=== PATIENT | female | born 1945 | race African-American/Black ===

== ENCOUNTER 2017-07-03 05:58 | Day surgery (SDC) | payer MEDICARE, MEDICAID ==
--- NOTE | 2017-07-02 13:36 | Pre-Procedure Note/Attestation ---
Pre-Procedure Note/Attestation Complete Prior to Procedure Planned Procedure: right Procedure Narrative: phaco with IOL, OD Indications for Procedure Pre-Operative Diagnosis: cataract Attestation I attest that I discussed the nature of the procedure; its benefits; risks and complications; and alternatives (and the risks and benefits of such alternatives ), prior to the procedure, with the patient (or the patient's legal medical representative). I attest that, if there was a reasonable possibility of needing a blood transfusion, the patient (or the patient's legal medical representative) was given the [facility] standardized written summary, pursuant to the Sly Susy Blood Safety Act ([place] Health and Safety Code # 1645, as amended). I attest that I re-evaluated the patient just prior to the surgery and that there has been no change in the patient's H&P, except as documented below: ROBBIE HEBERT Jul 02, 2017 13:36
--- NOTE | 2017-07-02 13:38 | Opthalmology H&P ---
Ophthalmology H&P H&P Chief Complaint: decreased vision in right eye HPI Vision Affects Ability to: read, focus/use eyes together, manage personal affairs HPI Narrative blurry vision Exam Visual Acuity: OD: cortical OS: ns Tension: OD: 19 OS: 15 Eye Exam: normal OU: external exam, palpebral fissure-width, marginal reflex distance, levator function, corneas, anterior chambers, findings: lens - OD: cortical OS: ns, fundus exam - drusen Assessment/Plan Diagnosis: (1) Cortical age-related cataract of right eye Treatment Plan: cataract extraction w/ lens implant Goals of Treatment: improvement of vision, enhance quality of life Attestation Attestation The risks and benefits of the surgery as well as alternative procedures were explained to the patient in detail. ROBBIE HEBERT Jul 02, 2017 13:38
[~2017-07-03] VITALS: Ht 152.4 cm; Wt 86.2 kg
[2017-07-03] VITALS (11 sets, daily range): BP systolic 128–150; BP diastolic 60–76
[2017-07-03] MEDS ORDERED: Tetracaine 0.5% Opth 4ml Soln RIGHT EYE ONE (07:00)
[2017-07-03] MEDS ORDERED: Proparacaine 0.5% Opth Soln 15ml RIGHT EYE ONE (07:00)
[2017-07-03] MEDS ORDERED: Akten 3.5% 1ml Btl RIGHT EYE ONE (07:00)
[2017-07-03] MEDS ORDERED: EPINEPHrine 1mg/1ml Amp ONE ×2 (07:04→09:00)
[2017-07-03] MEDS ORDERED: Bupivacaine 0.75% 30ml vial INJ ONE (07:04)
[2017-07-03] MEDS ORDERED: acetaZOLAMIDE 500mg Inj ONE (07:04)
[2017-07-03] MEDS ORDERED: Lidocaine 2% MPF 5ml Vial INJ ONE (07:05)
[2017-07-03] MEDS ORDERED: Carbachol 0.01% Op Soln 1.5ml vial ONE (07:05)
[2017-07-03] MEDS ORDERED: BSS 15ml BTL ONE ×2 (07:05→10:44)
[2017-07-03] MEDS ORDERED: Pilocarpine 2% Opth 15ml Soln ONE ×2 (07:05→09:34)
[2017-07-03] MEDS ORDERED: Sodium Hyaluronate 14 mg/ml 0.85ml ONE (07:06)
[2017-07-03] MEDS: Tobramycin Op Soln 0.3% 5ml RIGHT EYE SCH ×3 (07:50→08:11)
[2017-07-03] MEDS: Tropicamide 1% Opth 15ml Soln RIGHT EYE SCH ×3 (07:51→08:11)
[2017-07-03] MEDS: Cyclopentolate 1% Opth Sol 2ml RIGHT EYE SCH ×3 (07:51→08:11)
[2017-07-03] MEDS: Ketorolac Tromethamine Opth 5ml Soln RIGHT EYE SCH ×3 (07:51→08:11)
[2017-07-03] MEDS: Phenylephrine 10% Opth Soln 5ml RIGHT EYE SCH ×3 (07:51→08:12)
[2017-07-03] MEDS ORDERED: ASPIR 8181 MG ORAL (08:24)
[2017-07-03] MEDS ORDERED: MULTIVITAMINS1 EAC2 ORAL (08:25)
[2017-07-03] MEDS ORDERED: DIOVAN160 MG ORAL (08:25)
[2017-07-03] MEDS ORDERED: CYMBALTA60 MG ORAL (08:25)
[2017-07-03] MEDS ORDERED: ULTRAM50 MG ORAL (08:25)
[2017-07-03] MEDS ORDERED: VITAMIN D1000 UNI1 ORAL (08:25)
[2017-07-03] MEDS ORDERED: OMEPRAZOLE20 M2 ORAL (08:25)
[2017-07-03] MEDS ORDERED: LINZESS72 MCG PO (08:25)
[2017-07-03] MEDS ORDERED: DOC-Q-LACE100 M1 ORAL (08:25)
[2017-07-03] MEDS ORDERED: ZETIA10 MG ORAL (08:25)
[2017-07-03] MEDS ORDERED: LIPITOR20 MG ORAL (08:25)
[2017-07-03] MEDS ORDERED: FISH OIL CAP1000 MG ORAL (08:25)
[2017-07-03] MEDS ORDERED: LYRICA100 MG ORAL (08:25)
[2017-07-03] MEDS ORDERED: Midazolam 2mg/2ml Inj ONE (08:45)
[2017-07-03] MEDS ORDERED: Propofol 200mg/20ml IV ONE (08:45)
[2017-07-03] MEDS ORDERED: Sterile Water Irrig 1000ml IRRIG ONE (08:45)
[2017-07-03] MEDS ORDERED: NS Irrig 1000ml ONE (08:45)
[2017-07-03] MEDS ORDERED: LR 1000ml ONE (08:45)
[2017-07-03] MEDS ORDERED: Pred Forte 1% Opth Susp 1ml ONE (09:00)
[2017-07-03] MEDS ORDERED: BSS 500ml btl ONE (09:00)
[2017-07-03] MEDS ORDERED: Maxitrol Opth Oint 3.5gm ONE (09:00)
[2017-07-03] MEDS ORDERED: Dexamethasone 4mg/ml vial ONE (09:00)
[2017-07-03] MEDS ORDERED: Sterile Water 10ml Vial ONE (09:00)
[2017-07-03] MEDS ORDERED: LR 1000ml 1,000 ML IVLG SCH (09:07)
--- NOTE | 2017-07-03 09:07 | Anethesia Preoperative Eval ---
Anesthesia Pre-op PMH/ROS General Date of Evaluation: Jul 03, 2017 Time of Evaluation: 08:40 Anesthesiologist: Cassy ASA Score: ASA 3 Mallampati Score Class I : Soft palate, uvula, fauces, pillars visible Class II: Soft palate, uvula, fauces visible Class III: Soft palate, base of uvula visible Class IV: Only hard plate visible Mallampati Classification: Class III Surgeon: Cora Diagnosis: R eye cataract Surgical Procedure: R eye cataract extraction Anesthesia History: none Family History: no anesthesia problems Allergies: Coded Allergies: CODEINE (Verified Allergy, Intermediate, 07/03/17) hives SULFA (SULFONAMIDE ANTIBIOTICS) (Verified Allergy, Intermediate, 07/03/17) hives Medications: see eMAR Past Medical History Cardiovascular: Reports: HTN, Denies: CAD, OR, valve dz, arrhythmia, other Pulmonary: Reports: KIRILL, Denies: asthma, COPD, other Gastrointestinal/Genitourinary: Reports: GERD, Denies: CRI, ESRD, other Neurologic/Psychiatric: Reports: other - chronic pain, Denies: dementia, CVA, depression/anxiety, TIA Endocrine: Denies: DM, hypothyroidism, steroids, other HEENT: Reports: cataract (L), cataract (R), Denies: glaucoma, [place] (L), [place] (R), other Hematology/Immune: Denies: anemia, DVT, bleeding disorder, other Musculoskeletal/Integumentary: Reports: OA, DJD Other: obesity PMH Narrative: as above PSxH Narrative: Bilateral knees, bilateral shoulders Anesthesia Pre-op Phys. Exam Physician Exam Last Vital Signs Date Time Temp Pulse Resp B/P (MAP) Pulse Ox O2 Delivery O2 Flow Rate FiO2 07/03/17 08:15 98.3 57 16 143/74 98 Room Air 98.3 Constitutional: NAD Neurologic: CN 2-12 intact Cardiovascular: RRR, no M/R/G Respiratory: CTA Gastrointestinal: other - obesity Airway Exam Mallampati Score: Class III MO: limited Neck: short ROM: limited Teeth: missing Dentures: no upper, no lower Anesthesia Pre-op A/P Labs see chart Risk Assessment & Plan Assessment: ASA 3 Plan: MAC Pre-Antibiotics Drug: none KATHERINE POOL M.D. Jul 03, 2017 09:07
[2017-07-03] MEDS ORDERED: DiphenhydrAMINE 50mg/ml Inj IVP PRN (09:15)
[2017-07-03] MEDS ORDERED: fentaNYL 100 mcg/2 mL IV PRN (09:15)
--- NOTE | 2017-07-03 10:09 | Immediate Post-Op Evaluation ---
Immediate Post-Op Evalulation Immediate Post-Op Evalulation Procedure: R eye cataract extraction with IOL Date of Evaluation: Jul 03, 2017 Time of Evaluation: 09:29 IV Fluids: 200 Blood Products: none Estimated Blood Loss: none Urinary Output: none Blood Pressure Systolic: 125 Blood Pressure Diastolic: 72 Pulse Rate: 62 Respiratory Rate: 20 O2 Sat by Pulse Oximetry: 99 Temperature (Fahrenheit): 97.4 Pain Score (1-10): 1 Nausea: No Vomiting: No Complications none Patient Status: awake, patent, none Hydration Status: adequate KATHERINE POOL M.D. Jul 03, 2017 10:09
--- NOTE | 2017-07-03 10:13 | 48 Hour Post Anesthesia Eval ---
Post Anesthesia Evaluation Procedure: R eye cataract extraction with IOL Date of Evaluation: Jul 03, 2017 Time of Evaluation: 10:12 Blood Pressure Systolic: 116 0: 64 Pulse Rate: 58 Respiratory Rate: 20 Temperature (Fahrenheit): 97.6 O2 Sat by Pulse Oximetry: 98 Airway: patent Nausea: No Vomiting: No Pain Intensity: 2 Hydration Status: adequate Cardiopulmonary Status: stable Mental Status/LOC: patient returned to baseline Follow-up Care/Observations: n/a Post-Anesthesia Complications: none Follow-up care needed: ready to discharge KATHERINE POOL M.D. Jul 03, 2017 10:13
--- NOTE | 2017-07-03 11:44 | Brief Operative Note ---
Immediate Post Operative Note Operative Note Chief Complaint: blurry vision, OD Pre-op Diagnosis: cataract, OD Procedure: phaco with IOL, OD Post-op Diagnosis: Pseudophakia, OD Post-op Diagnosis: same as pre-op Findings: consistent w/pre-op dx studies Surgeon: Cora Anesthesiologist: Cassy Anesthesia: MAC Specimen: none Complications: none Fluids: LR Estimated Blood Loss: none Drains: none Implant(s) used?: Yes ROBBIE HEBERT Jul 03, 2017 11:44
--- NOTE | 2017-07-03 11:46 | Operative Note - PDOC ---
Operative Note Operative Note Date of Operation/Procedure: Jul 03, 2017 Chief Complaint: blurry vision, OD Pre-op Diagnosis: cataract, OD Procedure: phaco with IOL, OD Post-op Diagnosis: Pseudophakia, OD Post-op Diagnosis: same as pre-op Operative Findings: consistent w/pre-op dx studies Surgeon: Cora Anesthesiologist: Cassy Anesthesia: MAC Specimen: none Complications: none Fluids: LR Estimated Blood Loss: none Drains: none Implant(s) used?: Yes Indications for Procedure cataract Description of Procedure This patient has been complaining visually significant cataract in the affected eye with the best corrected visual acuity under moderate glare conditions worse. The patient complains of difficulties with glare in performing activities of daily living and wants to manage personal affairs with comfort and accuracy and see well enough to move with safety at home and outdoors. The risks, benefits and alternatives of the procedure were discussed with the patient in the office prior to scheduling surgery. All questions from the patient were answered after the surgical procedure was explained in detail. The risks of the procedure as explained to the patient include, but are not limited to, pain, infection, bleeding, loss of vision, retinal detachment, need for further surgery, loss of lens nucleus, double vision, etc. Alternative procedures were discussed which include, to do nothing or seek a second opinion. Informed consent for this procedure was obtained from the patient. The patient was referred to a primary care physician for a cardiopulmonary clearance prior to surgery, after proper evaluation was done patient was properly scheduled for outpatient surgery. The patient was brought to the operating room where the anesthesiologist established I.V. lines and cardiac monitoring leads. Mild intravenous sedation was administered. The patient was then prepared with a 5% solution of povidone -iodine to the conjunctival fornix and lashes, and a 5% solution of povidone- iodine to the lids and periorbital skin. The patient was then draped in the usual sterile fashion. A lid speculum was then placed in the operative eye. A keratome blade was then used to create a biplanar incision into the anterior chamber. Viscoelastics was then instilled into the anterior chamber. A capsulorrhexis was then fashioned with an utrata forceps followed by a BSS and a cannula were then used to hydrodissect and hydro delineate the lens. Paracentesis incision was made at 3 o'clock with sharp blade. The phacoemulsification unit, after being properly adjusted and tested, was then used to emulsify the nucleus then residual cortical material was aspirated with the irrigation and aspiration unit. Healon was then instilled into the anterior chamber. The corneal wound was then enlarged to the size of the optic with the ketty keratome blade. The intraocular lens was then inspected for right power and size and thought to be satisfactory. Then the lens was gently placed in the capsular bag. Positioning within the capsular bag was confirmed by direct visualization. Optic centration was accomplished with a Sinskey hook. Viscoelastics was removed from the anterior chamber using the irrigation and aspiration unit. The corneal wound was then tested for leaks and none were found. The lid speculum were then removed. Sponge and needle counts were correct. An eye patch and shield were placed over the operative eye. The patient was taken to the recovery room in stable condition. There were no complications. The patient tolerated the procedure well. The patient was then transferred to the ambulatory surgery unit in stable and satisfactory condition , was given detailed written instructions and asked to follow up in the office the next day. ROBBIE HEBERT Jul 03, 2017 11:46
== END 2017-07-03 11:30 | disposition home or self-care (01) ==
LOC: SUR 05:58
DX: H25.011 Cortical age-related cataract, right eye (principal); I10 Essential (primary) hypertension; G47.33 Obstructive sleep apnea (adult) (pediatric); K21.9 Gastro-esophageal reflux disease without esophagitis; M19.90 Unspecified osteoarthritis, unspecified site; Z88.2 Allergy status to sulfonamides; Z88.6 Allergy status to analgesic agent; E66.9 Obesity, unspecified; Z68.37 Body mass index [BMI] 37.0-37.9, adult
CPT/HCPCS: 66984; J0171; J1100; J2250; J2704; J3370; J7120; V2632; 94003; 94150; A4216